=== PATIENT | female | born 1970 | race Caucasian/White ===

== ENCOUNTER 2021-03-05 14:57 | Inpatient (IN) ==
[2021-03-05] MEDS ORDERED: Ipratropium/Albuterol Neb 3 ML IH PRN (17:11)
[2021-03-05] MEDS ORDERED: Fluticasone Propionate Nasal 50 MCG/SPRAY BOTTLE NS PRN (17:11)
[2021-03-05] MEDS ORDERED: *HR* OxyCODONE Immed Rel 5 MG TABLET PO PRN (17:40)
[2021-03-05] MEDS ORDERED: 0.9 % Sodium Chloride 500 ML IVC ONE (20:16)
[2021-03-05] MEDS: Ondansetron 4 MG/2 ML VIAL IVP PRN (21:11)
[2021-03-05] MEDS: levETIRAcetam 250 MG TABLET PO SCH (21:12)
[2021-03-05] MEDS: dexAMETHasone 4 MG TABLET PO SCH (23:46)
[2021-03-05] MEDS: QUEtiapine Fumarate 100 MG TABLET PO SCH (23:47)
[2021-03-05] MEDS: *HR* OxyCODONE ER (12 HR) 10 MG TABLET PO SCH (23:47)
[2021-03-05] MEDS: ALPRAZolam 0.5 MG TABLET PO SCH (23:47)
[2021-03-05] MEDS: Furosemide 20 MG TABLET PO SCH (23:52)
[2021-03-05] MEDS: Isosorbide MONOnitrate (24 HR) 60 MG TAB.ER.24H PO SCH (23:52)
[2021-03-06] MEDS: Ondansetron 4 MG/2 ML VIAL IVP PRN ×2 (04:57→11:09)
[2021-03-06 05:12] LABS: Hematocrit 42.5 % (35.3-44.9); Lymphocytes # 0.3 K/mcL (0.6-4.6); Mean Corpuscular HGB Conc 32.9 g/dL (31.6-35.5); Mean Corpuscular Hemoglobin 30.3 pg (28.0-33.3); Red Blood Count 4.62 M/mcL (3.82-4.97); Red Cell Distribution Width 12.9 % (11.5-14.5)
[2021-03-06 05:33] LABS: Calcium 7.4 mg/dL (8.6-10.3); Potassium 3.9 mEq/L (3.5-5.1)
[2021-03-06 05:37] LABS: Platelet Count 11 K/mcL (140-400); White Blood Count 0.3 K/mcL (4.3-11.1)
[2021-03-06] MEDS: levETIRAcetam 250 MG TABLET PO SCH ×2 (06:04→20:21)
[2021-03-06] MEDS ORDERED: Prochlorperazine 10 MG/2 ML VIAL IVP PRN (08:48)
[2021-03-06] MEDS: Furosemide 20 MG TABLET PO SCH (08:50)
[2021-03-06] MEDS: ALPRAZolam 0.5 MG TABLET PO SCH ×2 (08:51→22:37)
[2021-03-06] MEDS ORDERED: polyethylene glycoL 3350 17 GM POWD.PACK PO SCH (09:00)
[2021-03-06] MEDS ORDERED: NON-FORMULARY MEDICATION 1 EACH EACH (Duloxetine Hcl [Cymbalta] 60 MG Capsule.Dr) PO SCH (09:00)
[2021-03-06] MEDS: *HR* OxyCODONE ER (12 HR) 10 MG TABLET PO SCH ×2 (09:08→22:30)
[2021-03-06] MEDS ORDERED: 0.9 % Sodium Chloride 500 ML IVC ONE (10:02)
[2021-03-06] MEDS ORDERED: 0.9 % Sodium Chloride 1,000 ML IVC SCH (10:15)
[2021-03-06 10:37] LABS: Adenovirus F 40/41 PCR Not detected (Not detect); Astrovirus PCR Not detected (Not detect); C.difficile Toxin A/B Gene PCR Not detected (Not detect); Campylobacter by PCR Not detected (Not detect); Cryptosporidium by PCR Not detected (Not detect); Cyclospora cayetanensis PCR Not detected (Not detect); E. coli O157 by PCR Not detected (Not detect); Entamoeba histolytica PCR Not detected (Not detect); Enteroaggregative E.coli(EAEC) Not detected (Not detect); Enteropathogenic E.coli(EPEC) Not detected (Not detect); Enterotoxigenic E.coli (ETEC) Not detected (Not detect); Giardia lamblia PCR Not detected (Not detect); Norovirus GI/GII PCR Not detected (Not detect); Plesiomonas shigelloides PCR Not detected (Not detect); Rotavirus A PCR Not detected (Not detect); Salmonella PCR Not detected (Not detect); Sapovirus PCR Not detected (Not detect); Shig/EnteroinvasiveE coli EIEC Not detected (Not detect); Shigalike tox-prod E coli STEC Not detected (Not detect); Vibrio PCR Not detected (Not detect); Vibrio cholerae PCR Not detected (Not detect); Yersinia enterocolitica PCR Not detected (Not detect)
[2021-03-06 11:40] LABS: Platelet Estimate Marked Decrease (Normal)
[2021-03-06] MEDS: 0.9 % Sodium Chloride 1,000 ML IVC SCH ×3 (11:43→23:32)
[2021-03-06] MEDS: Isosorbide MONOnitrate (24 HR) 60 MG TAB.ER.24H PO SCH ×2 (16:59→22:37)
[2021-03-06] MEDS: Nicotine 14 MG PATCH.TD24 TD SCH (16:59)
[2021-03-06] MEDS: allopurinoL 300 MG TABLET PO SCH (17:00)
[2021-03-06] MEDS: Cholecalciferol (D-3) 1,000 UNIT (25MCG) TABLET PO SCH (17:00)
[2021-03-06 17:01] LABS: Calcium 6.9 mg/dL (8.6-10.3); Magnesium 1.3 mg/dL (1.6-2.6); Phosphorous 4.5 mg/dL (2.7-4.5); Potassium 3.3 mEq/L (3.5-5.1)
[2021-03-06] MEDS ORDERED: 0.9 % Sodium Chloride 1,000 ML IV ONE (17:01)
[2021-03-06] MEDS: dexAMETHasone 4 MG TABLET PO SCH ×2 (17:01→22:36)
[2021-03-06] MEDS: Aspirin Enteric Coated 81 MG Tablet PO SCH (17:03)
[2021-03-06] MEDS ORDERED: Morphine Sulfate 2 MG/ML SYRINGE IVP PRN ×2 (20:51→20:54)
[2021-03-06 21:40] LABS: Calcium 6.5 mg/dL (8.6-10.3); Magnesium 1.1 mg/dL (1.6-2.6); Potassium 3.1 mEq/L (3.5-5.1)
[2021-03-06] MEDS: QUEtiapine Fumarate 100 MG TABLET PO SCH (22:37)
[2021-03-07] MEDS: Ondansetron 4 MG/2 ML VIAL IVP PRN ×2 (00:23→06:56)
[2021-03-07] MEDS: levETIRAcetam 250 MG TABLET PO SCH ×2 (06:23→08:20)
[2021-03-07 07:15] LABS: Albumin 2.6 g/dL (3.5-5.7); Bilirubin,Total 0.7 mg/dL (0.3-1.0); Calcium 6.5 mg/dL (8.6-10.3); Globulin 2.7 g/dL (2.4-3.5); Magnesium 1.3 mg/dL (1.6-2.6); Phosphorous 4.7 mg/dL (2.7-4.5); Potassium 2.9 mEq/L (3.5-5.1); Total Protein 5.3 g/dL (6.4-8.9)
[2021-03-07] MEDS: Cholecalciferol (D-3) 1,000 UNIT (25MCG) TABLET PO SCH (08:04)
[2021-03-07] MEDS: ALPRAZolam 0.5 MG TABLET PO SCH (08:06)
[2021-03-07] MEDS: dexAMETHasone 4 MG TABLET PO SCH ×2 (08:06→14:16)
[2021-03-07] MEDS: allopurinoL 300 MG TABLET PO SCH (08:06)
[2021-03-07] MEDS: Nicotine 14 MG PATCH.TD24 TD SCH (08:06)
[2021-03-07] MEDS: Aspirin Enteric Coated 81 MG Tablet PO SCH (08:07)
[2021-03-07] MEDS: 0.9 % Sodium Chloride 1,000 ML IVC SCH (08:12)
[2021-03-07] MEDS: Isosorbide MONOnitrate (24 HR) 60 MG TAB.ER.24H PO SCH (08:16)
[2021-03-07] MEDS ORDERED: 0.9 % Sodium Chloride 500 ML IVC ONE ×2 (12:09→14:03)
[2021-03-07] MEDS ORDERED: 0.9 % Sodium Chloride 500 ML ONE ×2 (12:10→13:59)
[2021-03-07 14:02] LABS: Hemoglobin 9.7 g/dL (11.5-15.4); Lymphocytes % 81.3 %; Mean Corpuscular HGB Conc 33.4 g/dL (31.6-35.5); Mean Corpuscular Hemoglobin 30.8 pg (28.0-33.3); Mean Corpuscular Volume 92.1 fL (83.0-100.0); Mean Platelet Volume 10.2 fL (9.4-12.4); Monocytes % 12.5 %; Red Blood Count 3.15 M/mcL (3.82-4.97); Segmented Neutrophils % 6.2 %
[2021-03-07] MEDS ORDERED: Acetaminophen 650 MG RECTAL SUPP RC ONE (14:02)
[2021-03-07 14:06] LABS: Lymphocytes # 0.2 K/mcL (0.6-4.6); Platelet Count 18 K/mcL (140-400); White Blood Count 0.2 K/mcL (4.3-11.1)
[2021-03-07] MEDS ORDERED: Acetaminophen 325 MG TABLET PO ONE (14:07)
[2021-03-07] MEDS ORDERED: Potassium Chloride Elixir 20 MEQ/15 ML UDC PO SCH (15:00)
[2021-03-07 15:11] VITALS: BP 80/56
[2021-03-07] MEDS ORDERED: Morphine Sulfate Oral CONC 10 MG/0.5 ML ORAL.SYG SL PRN (15:49)
[2021-03-07] MEDS ORDERED: *HR* LORazepam Oral Conc 2 MG/ML SL PRN (17:00)
== END 2021-03-07 17:27 | disposition hospice, inpatient (51) | DRG 947 ==
LOC: INPGRE 16:47
PROVIDERS: ADMIT Family Medicine; ATTEND Family Medicine

== ENCOUNTER 2021-03-07 16:49 | Inpatient (IN) ==
[2021-03-07] MEDS ORDERED: Ondansetron 4 MG/2 ML VIAL IVP PRN (17:15)
[2021-03-07] MEDS ORDERED: *HR* LORazepam Oral Conc 2 MG/ML PO PRN (17:15)
[2021-03-07] MEDS ORDERED: Ipratropium/Albuterol Neb 3 ML IH PRN (17:15)
[2021-03-07] MEDS ORDERED: Morphine Sulfate Oral CONC 10 MG/0.5 ML ORAL.SYG PO PRN (17:15)
[2021-03-07] MEDS ORDERED: Atropine 1% Opth Drops 100 DROP/5 ML BOTTLE SL PRN (17:15)
[2021-03-07] MEDS ORDERED: Morphine Sulfate 2 MG/ML SYRINGE IVP ONE (17:24)
[2021-03-07] MEDS ORDERED: levETIRAcetam 250 MG TABLET PO SCH (18:00)
[2021-03-07 18:58] VITALS: BP 76/52
[2021-03-07] MEDS ORDERED: Potassium Chloride Elixir 20 MEQ/15 ML UDC PO ONE (21:00)
[2021-03-07] MEDS ORDERED: QUEtiapine Fumarate 100 MG TABLET PO SCH (21:00)
[2021-03-07] MEDS ORDERED: dexAMETHasone 4 MG TABLET PO SCH (21:00)
[2021-03-08] MEDS ORDERED: Nicotine 14 MG PATCH.TD24 TD SCH (09:00)
== END 2021-03-08 04:55 | disposition expired | DRG 951 ==
LOC: INPGRE 17:28
PROVIDERS: ADMIT Family Medicine; ATTEND Family Medicine